=== PATIENT | female | born 1965 | race Caucasian/White ===

== ENCOUNTER → 2017-09-16 | Outpatient (CLI) | payer OTHER ==
[~2017-09-16] VITALS: Ht 170.2 cm; Wt 112.4 kg
[~2017-09-16] MED LIST: ALBUTEROL17 GM IH; ALBUTEROL2.5 MG/3 M IH; AMBIEN CR12.5 MG PO; AMOXICILLIN500 M1 PO; ANTIVERT25 MG PO; CELEXA20 MG PO; EAR DROPS15 ML BOTH EARS; ERGOCALCIF50000 UNIT PO; FLEXERIL10 MG PO; HYCODAN SYRUP480 ML PO; INCRUSE ELLI62.5 MCG IH; LISINOPRIL20 MG PO; LISINOPRIL40 MG PO; MOTRIN800 MG PO; MUCUS ER600 MG PO; Macrobid PO; NOHOMEMEDS; OXYCODONE HCL10 MG PO; PERCOCET 5/31 TABLET PO; PREDNISONE50 MG PO; PROAIR HFA8.5 GM IH; PROVENTIL,2.5 MG/0.5; PROVENTIL,2.5 MG/3 M IH; Percocet 5/325,Endoc PO; ROBITUSSIN NIG118 ML PO; SYMBICORT60 INHALAT IH; TRAMADOL HCL50 MG PO; TRAZODONE HCL50 MG PO; VENTOLIN HFA18 GM; VENTOLIN HFA18 GM IH; ZESTRIL40 MG PO; ZITHROMAX Z-PA250 MG PO
== END | disposition home or self-care (01) ==
LOC: AMB 06:57
DX: K29.70 Gastritis, unspecified, without bleeding (principal); K62.1 Rectal polyp; R10.11 Right upper quadrant pain; R11.0 Nausea; K59.00 Constipation, unspecified; J44.9 Chronic obstructive pulmonary disease, unspecified; I10 Essential (primary) hypertension; F31.9 Bipolar disorder, unspecified; D35.1 Benign neoplasm of parathyroid gland; F17.200 Nicotine dependence, unspecified, uncomplicated; E66.9 Obesity, unspecified; Z68.39 Body mass index [BMI] 39.0-39.9, adult; E53.8 Deficiency of other specified B group vitamins; E55.9 Vitamin D deficiency, unspecified; Z80.0 Family history of malignant neoplasm of digestive organs; Z82.5 Family history of asthma and other chronic lower respiratory diseases; Z88.5 Allergy status to narcotic agent; Z88.8 Allergy status to other drugs, medicaments and biological substances; Z91.040 Latex allergy status
CPT/HCPCS: 88305; 88342 TC

== ENCOUNTER 2017-09-21 12:29 | Emergency (ER) | payer OTHER ==
[~2017-09-21] VITALS: Ht 170.2 cm; Wt 113.1 kg
[2017-09-21] MEDS ORDERED: MOTRIN600 MG PO (14:42)
[2017-09-21] MEDS ORDERED: ROBAXIN750 MG PO (14:42)
[2017-09-21 14:58] VITALS: BP 142/82
== END 2017-09-21 15:14 | disposition home or self-care (01) ==
LOC: EME 12:29
DX: S16.1XXA Strain of muscle, fascia and tendon at neck level, initial encounter (principal); S80.10XA Contusion of unspecified lower leg, initial encounter; G89.29 Other chronic pain; M25.551 Pain in right hip; M25.561 Pain in right knee; Z98.1 Arthrodesis status; Z85.44 Personal history of malignant neoplasm of other female genital organs; Z87.442 Personal history of urinary calculi; F17.200 Nicotine dependence, unspecified, uncomplicated; V49.9XXA Car occupant (driver) (passenger) injured in unspecified traffic accident, initial encounter
CPT/HCPCS: 73501; 73564; 99281; 99284

== ENCOUNTER 2017-12-08 09:17 | Emergency (ER) | payer OTHER ==
[~2017-12-08] VITALS: Ht 170.2 cm; Wt 110.0 kg
[~2017-12-08 09:17] MED LIST changes: +MOTRIN600 MG PO; +ROBAXIN750 MG PO
[2017-12-08 10:21] LABS: HEMATOCRIT 46.6 % (36.0-46.0); MCH 29.9 PG (29.0-34.0); MCHC 34.3 G/DL (30.0-36.0); MCV 87.1 FL (83-99); PLATELET COUNT 259 K/uL (156-360); RBC DIS.WIDTH-CV 12.3 % (11.8-14.6); RBC DIS.WIDTH-SD 39.2 % (39-53); RED BLOOD COUNT 5.35 M/uL (3.80-5.20); WHITE BLOOD COUNT 8.2 K/uL (4.1-10.2)
[2017-12-08 10:31] LABS: ALBUMIN 4.3 g/dL (3.2-4.8)
[2017-12-08 10:32] LABS: CHLORIDE 109 mEq/L (99-109); POTASSIUM 4.2 mEq/L (3.7-5.4); SODIUM 140 mEq/L (136-147)
[2017-12-08 10:34] LABS: GLUCOSE 117 mg/dL (70-99); TOTAL PROTEIN 7.1 g/dL (6.4-8.3)
[2017-12-08 10:36] LABS: TOTAL BILIRUBIN 0.7 mg/dL (0.0-1.0)
[2017-12-08 10:37] LABS: ALKALINE PHOSPHATASE 150 IU/L (3-129)
[2017-12-08 10:38] LABS: CREATININE 0.9 mg/dL (0.6-1.3); GFR ESTIMATE (CALCULATED) > 59 mL/min/
[2017-12-08 10:39] LABS: AST (GOT) 13 IU/L (2-34); UREA NITROGEN (BUN) 12 mg/dL (9-23)
[2017-12-08 10:40] LABS: ALT (GPT) 18 IU/L (3-49)
[2017-12-08 11:26] LABS: APPEARANCE SL.HAZY ((CLEAR)); BILIRUBIN NEGATIVE; BLOOD NEGATIVE; COLOR YELLOW ((YELLOW)); GLUCOSE (STRIP) NEGATIVE; KETONES NEGATIVE; LEUKOCYTES NEGATIVE; NITRITE NEGATIVE; PROTEIN (STRIP) 30; SPECIFIC GRAVITY 1.026 (1.000-1.030); UROBILINOGEN 0.2 MG/DL (0.2-1.0)
[2017-12-08 11:35] LABS: BACTERIA RARE /HPF; CALCIUM OXALATE CRYSTALS 1+ /HPF; EPITHELIAL CELLS RARE /HPF; MUCUS 2+ /LPF; RED BLOOD CELLS 0-5 /HPF (0-5); UCUL ADDED? NO; WHITE BLOOD CELLS 0-5 /HPF (0-5)
[2017-12-08 12:14] VITALS: BP 120/79
== END 2017-12-08 12:17 | disposition home or self-care (01) ==
LOC: EME 09:17
PROVIDERS: Nurse Practitioner Family
DX: K57.30 Diverticulosis of large intestine without perforation or abscess without bleeding (principal); K80.20 Calculus of gallbladder without cholecystitis without obstruction; K86.1 Other chronic pancreatitis; Z87.442 Personal history of urinary calculi; Z85.44 Personal history of malignant neoplasm of other female genital organs; F17.200 Nicotine dependence, unspecified, uncomplicated; Z88.5 Allergy status to narcotic agent; Z88.6 Allergy status to analgesic agent
CPT/HCPCS: 74176; 80053; 81003; 85027; 99281; 99285; J2405

== ENCOUNTER → 2018-03-19 | Outpatient (CLI) | payer OTHER | END | disposition home or self-care (01) | LOC: RAD 12:57 | DX: R22.32 Localized swelling, mass and lump, left upper limb (principal); R91.1 Solitary pulmonary nodule | CPT/HCPCS: 71260 ==

== ENCOUNTER 2018-03-26 10:10 | Day surgery (SDC) | payer OTHER ==
[~2018-03-26] VITALS: Ht 170.2 cm; Wt 103.4 kg
[2018-03-26 11:01] VITALS: BP 165/89
[2018-03-26 14:42] VITALS: BP 149/77
== END 2018-03-26 15:00 | disposition home or self-care (01) ==
LOC: SDC 10:10
DX: L72.0 Epidermal cyst (principal); J44.9 Chronic obstructive pulmonary disease, unspecified; I10 Essential (primary) hypertension; E03.9 Hypothyroidism, unspecified; R91.1 Solitary pulmonary nodule; K21.9 Gastro-esophageal reflux disease without esophagitis; E66.9 Obesity, unspecified; Z68.35 Body mass index [BMI] 35.0-35.9, adult; F41.9 Anxiety disorder, unspecified; F17.210 Nicotine dependence, cigarettes, uncomplicated
CPT/HCPCS: 88304; 94640; J0131; J0330; J0690; J2250; J2405; J2765; J3010; J7643; S0020